=== PATIENT | male | born 1965 | race Caucasian/White ===

== ENCOUNTER 2018-10-16 13:32 | Emergency (ER) | payer SELFPAY ==
--- NOTE | 2018-10-16 14:49 | EDM.PDOC ---
ED HPI GENERAL MEDICAL PROBLEM - General Chief Complaint: Cardiovascular Problem Stated Complaint: [facility] Time Seen by Provider: 10/16/18 14:07 Source of Information: Reports: EMS, Family, RN Notes Reviewed - History of Present Illness INITIAL COMMENTS - FREE TEXT/NARRATIVE: Patient is a 53-year-old male that has been transported to our hospital ED having suffered cardiac arrest. He lives at a [facility]. He and his and been up shingling a house roof and is reported to have started having chest pain. Apparently he did feel "hot and sweaty" so decided to take a shower. His heard a noise consistent with him falling and when she checked on him he was in the shower having fallen unresponsive not breathing. She did immediately call 911, the patient's mother who was also present started CPR. That was at 12:10 today. [facility] arrived to the [facility] at around 12:30 this afternoon. Patient upon their arrival patient was not breathing, had no pulse, CPR was still being performed by his mother. they did social group worker the AED which did advise for shock and they actually did shock twice over the next several minutes but did not obtain a pulse, he did not start breathing on his own at any time. They did continue CPR. [facility] had been called with [facility]. They are reported to arrived on scene at 12:54. Rogerio airway was placed. security monitor showed asystole. IV was established and they did give 4 mg epinephrine divided doses. Rhythm did not change from asystole. They did call here to the ED at 13:23 for medical control and advice. At that time they were in route but still about 15 minutes away from the ED. Because his collapse had now been over 70 minutes prior, no return of spontaneous pulse breathing or cardiac rhythm resuscitative efforts were stopped at that time. Time of 13:23 ED ROS GENERAL - Review of Systems Review Of Systems: Unable To Obtain ED EXAM, GENERAL - Physical Exam Exam: See Below General Appearance: Other () Eye Exam: Bilateral Eye: Other (pupils are dilated, unreactive to light) Throat/Mouth: Other (Patient has a rogerio airway inserted, no blood visible in or around the mouth) Neck: Other (no bruising or swelling) Respiratory/Chest: Other (no breathsounds) Cardiovascular: Other (no heart tones) GI/Abdominal: Other (not distended) Extremities: No: Pedal Edema Skin Exam: Cool, Other (some skin mottling present) Course - Re-Assessments/Exams Free Text/Narrative Re-Assessment/Exam: 10/16/18 15:32. The sudden apparent cardiac arrest occured in [facility]. I did attempt to contact the [facility] coroner who is also [facility]. She was out of the office. I did reach one of the deputies who stated because CPR was stopped while he was than in [facility] I should [facility] Dr [facility]. Visiting with Dr Lloyd he agrees he of natural causes, autopsy not indicated from his standpoint. His and mother also have no interest in having an autopsy done. With the chest pain that he had before collapse and also what sounds like diaphoresis it is most likely that this was a cardiac event, cardiac arrhythmia secondary to Acute AL. As noted above time of 13:23. Departure - Departure Time of Disposition: 14:15 Disposition: 20 Preliminary Cause of *Q: Cardiac Arrest Clinical Impression: Cardiac arrhythmia Qualifiers: Arrhythmia type: ventricular fibrillation Qualified Code(s): I49.01 - Ventricular fibrillation Acute myocardial infarction Qualifiers: Myocardial infarction type: unspecified Involved coronary artery: unspecified coronary artery Qualified Code(s): I21.9 - Acute myocardial infarction, unspecified Referrals: PCP,None [Primary Care Provider] - Forms: ED Department Discharge
== END 2018-10-16 17:20 | disposition expired ==
LOC: JD.ED 13:32
DX: I49.01 Ventricular fibrillation (principal); I21.9 Acute myocardial infarction, unspecified
CPT/HCPCS: 99284